=== PATIENT | female | born 1995 ===

== ENCOUNTER 2019-12-22 16:11 | Inpatient (IN) | payer MEDICAID ==
[2019-12-22] MEDS ORDERED: LIDOCAINE (2%) 20 MG/1 ML VIAL 20 ML MDV INFILTRATI ONE (19:10)
[2019-12-22] MEDS ORDERED: fentaNYL 100 MCG/2 ML INJ IV PRN (19:10)
[2019-12-22] MEDS ORDERED: TERBUTALINE 1 MG/1 ML INJ SUB-Q PRN (19:10)
[2019-12-22] MEDS ORDERED: ePHEDrine SULFATE 50 MG/1 ML INJ IV PRN (19:10)
[2019-12-22] MEDS ORDERED: AMPICILLIN/NS 2 GM/100 ML 2 GM/100 ML BAG IV ONE (19:10)
--- NOTE | 2019-12-22 19:14 | History and Physical Report ---
History of Present Illness Date of examination: 12/22/19 Date of admission: 12/22/19 18:39 Chief complaint: 12/22/2019 History of present illness: Patient complains of contractions since last night. Denies LOF or VB. Reports active movement. EDC 01/07/2020 per patient report. Patient states she received care at [facility] but no records are available. labs are also not available so these have been drawn upon admission. Past History Past Medical History: other (Denies health problems) Past Surgical History: no surgical history [facility] History: denies: chlamydia, gonorrhea, hepatitis B, hepatitis C, herpes, HIV, syphilis, trichomonas Family/Genetic History: none Social history: full code. denies: smoking, alcohol abuse, prescription drug abuse, IV drug use - Obstetrical History : 3 Para: 2 Hx # Term Pregnancies: 2 Number of Pregnancies: 0 Spontaneous Abortions: 0 Induced : 0 Number of Living Children: 2 Medications and Allergies Allergies Allergy/AdvReac Type Severity Reaction Status Date / Time No Known Allergies Allergy Unverified 12/22/19 18:29 Home Medications Medication Instructions Recorded Confirmed Last Taken Type One Daily Tablet 1 tab PO DAILY 12/23/19 12/23/19 12/21/19 14:00 History 1 Active Meds: Active Medications Ephedrine Sulfate (Ephedrine Sulfate) 10 mg IV Q2M PRN PRN Reason: Hypotension Fentanyl (Sublimaze) 100 mcg IV Q2H PRN PRN Reason: Pain,Severe (7-10) LABOR PAIN Oxytocin/Sodium Chloride (Pitocin/Ns 20 Unit/1000ml Drip) 20 units in 1,000 mls @ 125 mls/hr IV DIRECT LYNN Lactated Ringer's (Lactated Ringers) 1,000 mls @ 125 mls/hr IV DIRECT LYNN Ampicillin Sodium (Ampicillin/Ns 2 Gm/100 Ml) 2 gm in 100 mls @ 100 mls/hr IV ONCE ONE; Protocol Stop: 12/22/19 20:09 Ampicillin Sodium (Ampicillin/Ns 1 Gm/50 Ml) 1 gm in 50 mls @ 100 mls/hr IV Q4HR LYNN; Protocol Lidocaine (Xylocaine 2%) 20 ml INFILTRATI ONCE ONE Stop: 12/22/19 19:11 Terbutaline Sulfate (Brethine) 0.25 mg SUB-Q ONCE PRN PRN Reason: Hyperstimulation/Hypertonicity Review of Systems All systems: negative (contractions) - Vital Signs Vital signs: Vital Signs Temp Pulse Resp BP 98.2 F 86 16 90/58 12/22/19 18:21 12/22/19 18:21 12/22/19 18:21 12/22/19 18:21 Temp Pulse Resp BP Pulse Ox 98.2 F 86 16 90/58 12/22/19 18:21 12/22/19 18:21 12/22/19 18:21 12/22/19 18:21 - Physical Exam Abdomen: Positive: normal appearance, soft. Negative: distention, tenderness, guarding, rigidity Genitourinary (Female): Positive: normal external genitalia, normal perenium. Negative: perineal/vulvar lesions Vagina: Positive: normal moisture Uterus: Positive: enlarged. Negative: tender Anus/Rectum: Positive: normal perianal skin Extremities: Positive: normal. Negative: tenderness, edema - Obstetrical FHR: category 1 Uterine Contraction Monitor Mode: External Cervical Dilatation: 4 Cervical Effacement Percentage: 95 station: -3 Uterine Contraction Pattern: Regular Uterine Contraction Intensity: Moderate Results Result Diagrams: 12/23/19 14:39 All other labs normal. Assessment and Plan A: at 37 5/7 weeks gestation. Active labor. GBS unknown. No records available. P: Admit. Request records. GBS prophylaxis. EFM. Anticipate .
[2019-12-22 20:09] LABS: Hematocrit 38.2 % (30.3-42.9); Hemoglobin 12.2 gm/dl (10.1-14.3); Mean Corpuscular HGB Conc 32 % (30-34); Mean Corpuscular Volume 72 fl (79-97); Platelet Count 253 K/mm3 (140-440); Red Blood Count 5.32 M/mm3 (3.65-5.03); Red Cell Distribution Width 15.1 % (13.2-15.2)
[2019-12-22] MEDS: LACTATED RINGERS 1,000 ML IV SCH ×3 (20:23→22:56)
[2019-12-22 20:32] LABS: Hepatitis C Virus Antibody Non-Reactive (NonReactive)
[2019-12-22] MEDS ORDERED: DEXMEDETOMIDINE 200 MCG/2 ML VIAL IV ONE (21:46)
[2019-12-22] MEDS ORDERED: NALOXONE 2 MG/2 ML INJ IV PRN (21:49)
[2019-12-22] MEDS ORDERED: fentaNYL-BUPIV 2 MCG/ML-0.125% 200 MCG/100 ML BAG EPIDURAL SCH (22:00)
--- NOTE | 2019-12-22 22:15 | Event Note ---
Date: 12/22/19 [facility] – [place], [place] /-2
--- NOTE | 2019-12-22 22:19 | Anesthesia Consultation ---
Anesthesia Consult and Med Hx Date of service: 12/22/19 - Airway Anesthetic Teeth Evaluation: Good ROM Head & Neck: Adequate Mental/Hyoid Distance: Adequate Mallampati Class: Class II Intubation Access Assessment: Probably Good - Pulmonary Exam CTA: Yes - Cardiac Exam Cardiac Exam: RRR - Pre-Operative Health Status ASA Pre-Surgery Classification: ASA2 Proposed Anesthetic Plan: Epidural - Pulmonary Hx Smoking: No Hx Asthma: No Hx Respiratory Symptoms: No SOB: No COPD: No Home Oxygen Therapy: No Hx Pneumonia: No Hx Sleep Apnea: No - Cardiovascular System Hx Hypertension: No Hx Coronary Artery Disease: No Hx Heart Attack/AMI: No Hx Angina: No Hx Percutaneous Transluminal Coronary Angioplasty (PTCA): No Hx Cardia Arrhythmia: No Hx Pacemaker: No Hx Internal Defibrillator: No Hx Valvular Heart Disease: No Hx Heart Murmur: No Hx Peripheral Vascular Disease: No - Central Nervous System Hx Neuromuscular Disorder: No Hx Seizures: No CVA: No Hx Back Pain: No Hx Psychiatric Problems: No - Gastrointestinal Hx Ulcer: No Hx Gastroesophageal Reflux Disease: Yes - Endocrine Hx Renal Disease: No Hx End Stage Renal Disease: No Hx Cirrhosis: No Hx Liver Disease: No Hx Insulin Dependent Diabetes: No Hx Non-Insulin Dependent Diabetes: No Hx Thyroid Disease: No Hx Hypothyroidism: No Hx Hyperthyroidism: No - Hematic Hx Anemia: No Hx Sickle Cell Disease: No - Other Systems Hx Alcohol Use: No Hx Substance Use: No Hx Cancer: No Hx Obesity: Yes
[2019-12-22] MEDS: ePHEDrine SULFATE 50 MG/1 ML INJ IV PRN ×3 (22:22→22:30)
[2019-12-22] MEDS ORDERED: AMPICILLIN/NS 1 GM/50 ML 1 GM/50 ML BAG IV SCH (23:13)
[2019-12-23] MEDS: OXYTOCIN 20 UNIT/1000ML DRIP 20 UNITS/1,000 ML BAG IV SCH ×2 (01:59→03:02)
[2019-12-23] MEDS ORDERED: diphenhydrAMINE 25 MG CAP PO PRN (02:11)
[2019-12-23] MEDS ORDERED: WITCH HAZEL/ GLYCERIN PAD TP PRN (02:11)
[2019-12-23] MEDS ORDERED: LANOLIN/ZINC/DIMETHICONE (LANSINOH) 7 GM TP PRN (02:11)
[2019-12-23] MEDS ORDERED: HYDROcodone/ACETAMINOPHEN 5-325 MG TAB PO PRN (02:11)
[2019-12-23] MEDS ORDERED: ONDANSETRON 4 MG/2 ML INJ IV PRN (02:11)
[2019-12-23] MEDS ORDERED: MAGNESIUM HYDROXIDE (MOM) ORAL LIQD UDC PO PRN (02:11)
--- NOTE | 2019-12-23 02:28 | Procedure Note ---
OB Delivery Note - Delivery Date of Delivery: 12/23/19 Surgeon: ELIANE CASAS Estimated blood loss: 300cc - Vaginal Delivery presentation: vertex Delivery position: OA Intrapartum events: none Delivery induction: none Delivery augmentation: rupture of membranes Delivery monitor: external FHT, external uterine Route of delivery: Delivery placenta: spontaneous Delivery cord: nuchal cord, 3 umbilical vessels Episiotomy: none Delivery laceration: none Anesthesia: epidural Delivery comments: Spontaneous vaginal delivery at 01:37 of liveborn female weighing 7 lb. 8 oz. over intact perineum with apgars of 8/9. Epidural anesthesia. Baby placed skin to skin with mom immediately after delivery. Spontaneous cry and resp irations. Baby bulb suctioned and dried with warm towels. 3 vessel cord double clamped and cut. Cord blood obtained. Spontaneous delivery of intact placenta and membranes by sheehan mechanism. EBL 300 cc. Pitocin to IV fluids after delivery of placenta. Fundus firm and midline. No lacerations noted. Vaginal sweep negative. Mother and baby stable.
[2019-12-23] MEDS: DOCUSATE SODIUM 100 MG CAP PO SCH (10:39)
[2019-12-23] MEDS: IBUPROFEN 600 MG TAB PO SCH ×2 (11:15→16:31)
--- NOTE | 2019-12-23 12:54 | Post Anesthesia Evaluation ---
- Post Anesthesia Evaluation Patient Participated: Yes Airway Patent: Yes Stable Respiratory Function: Yes Nausea/Vomiting: No Temp > 96.8F: Yes Pain Manageable: Yes Adequeate Hydration: Yes Anesthesia Complications: No Block Receding Appropriately: Yes Patient on Ventilator: No
[2019-12-23 15:29] LABS: Hematocrit 33.6 % (30.3-42.9); Hemoglobin 10.6 gm/dl (10.1-14.3)
[2019-12-24] MEDS: IBUPROFEN 600 MG TAB PO SCH ×3 (00:31→09:34)
[2019-12-24] MEDS: DOCUSATE SODIUM 100 MG CAP PO SCH ×2 (00:31→09:33)
[2019-12-24] MEDS ORDERED: DIPHtheria,PERTUSSIS(ACELL),TETANUS VACCINE/PF 0.5 ML VIAL IM ONE (06:00)
--- NOTE | 2019-12-24 14:09 | Progress Note ---
Assessment and Plan - Patient Problems (1) Status post normal vaginal delivery Current Visit: Yes Status: Acute Plan to address problem: PPD 1 - stable Continue routine orders Discharge to home today Follow-up at [facility] as needed or in 6 weeks exam (2) Single live Current Visit: Yes Status: Acute Subjective - Subjective Date of service: 12/24/19 Principal diagnosis: PPD #1; s/p Interval history: see [facility] - H&P, Event Note and OB Delivery Procedure Note Patient reports: appetite normal, voiding normally, pain well controlled, ambulating normally, no dizzy ambulation Sawyer: doing well Objective - Vital Signs Latest vital signs: Vital Signs Temp Pulse Resp BP BP Pulse Ox 12/24/19 07:58 97.4 F L 78 14 106/72 93 12/24/19 06:53 18 12/24/19 05:53 18 12/24/19 01:31 18 12/24/19 00:31 18 12/24/19 00:03 98.0 F 68 20 114/47 97 12/23/19 17:16 97.3 F L 75 18 110/50 94 Intake and Output 12/23/19 12/24/19 12/24/19 23:59 07:59 15:59 Intake Total 240 360 800 Balance 240 360 800 Intake: Oral 800 Intake, Free Water 240 360 Other: Total, Intake Amount 400 Voiding Method Toilet # Voids 1 Void 1 1 1 - Exam Cardiovascular: Present: Regular rate Lungs: Present: Clear to auscultation Abdomen: Present: normal appearance, soft Vulva: both: normal Uterus: Present: normal, firm, fundal height at umbilicus Extremities: Present: normal Comments: small lochia
--- NOTE | 2019-12-24 14:10 | Discharge Summary ---
Providers - Providers Date of Admission: 12/22/19 18:39 Date of discharge: 12/24/19 Attending physician: SHIRA NEELY Primary care physician: [facility] Hospitalization Reason for admission: active labor, IUP at term Delivery: Episiotomy: none Laceration: none Other procedures: none complications: none Discharge diagnosis: IUP at term delivered Pony baby: female Hospital course: Uncomplicated Condition at discharge: Stable Disposition: CO-01 TO HOME OR SELFCARE - Discharge Diagnoses (1) Status post normal vaginal delivery Status: Acute (2) Single live Status: Acute Plan - Provider Discharge Summary Activity: routine, no sex for 6 weeks, no heavy lifting 4 weeks, no strenuous exercise Diet: routine Instructions: routine Additional instructions: [] Smoking cessation referral if applicable(refer to patient education folder for contact #) [] Refer to [facility] Booklet Call your doctor immediately for: * Fever > 100.5 * Heavy vaginal bleeding ( >1 pad per hour) * Severe persistent headache * Shortness of breath * Reddened, hot, painful area to leg or breast * Drainage or odor from incision. * Keep incision clean and dry at all times and follow doctor's instructions regarding bathing/showering - Follow up plan Follow up: PRIMARY CARE, [Primary Care Provider] - 6 Weeks (Follow-up at [facility] as needed or in 6 weeks exam)
[2019-12-24 16:21] VITALS: BP 114/55
== END 2019-12-24 15:15 | disposition home or self-care (01) | DRG 775 ==
LOC: TRG 16:11 → APU 18:22 → TRG 18:39 → LD 18:39 → OB 12-23 03:35
PROVIDERS: ADMIT Obstetrics & Gynecology; ATTEND Obstetrics & Gynecology
PROC: 10E0XZZ Delivery of Products of Conception, External Approach (ICD-10-PCS; principal; 2019-12-23)
PROC: 3E0R3BZ Introduction of Anesthetic Agent into Spinal Canal, Percutaneous Approach (ICD-10-PCS; 2019-12-23)
PROC: 00HU33Z Insertion of Infusion Device into Spinal Canal, Percutaneous Approach (ICD-10-PCS; 2019-12-23)
PROC: 3E0234Z Introduction of Serum, Toxoid and Vaccine into Muscle, Percutaneous Approach (ICD-10-PCS; 2019-12-24)
DX: O69.81X0 Labor and delivery complicated by cord around neck, without compression, not applicable or unspecified (principal); O99.62 Diseases of the digestive system complicating childbirth; K21.9 Gastro-esophageal reflux disease without esophagitis; O99.214 Obesity complicating childbirth; E66.9 Obesity, unspecified; Z3A.37 37 weeks gestation of pregnancy; Z37.0 Single live birth
CPT/HCPCS: 36415; 83036; 85014; 85018; 85027; 86592; 86706; 86762; 86803; 86850; 86900; 86901; 87806; 90471; 90715; G0378; A6250; J0290; J2590; J3490; J7120

== ENCOUNTER 2020-04-04 08:05 | Day surgery (SDC) | payer MEDICAID ==
--- NOTE | 2020-04-01 12:59 | History and Physical Report ---
History of Present Illness Date of examination: 04/04/20 History of present illness: 24 yo desires sterilization and is for Lap BTL on 04/04. BTL papers signed october 10. Past History Past Medical History: no pertinent history Past Surgical History: no surgical history Social history: no significant social history - Obstetrical History : 3 Number of Living Children: 3 Medications and Allergies Allergies Allergy/AdvReac Type Severity Reaction Status Date / Time No Known Allergies Allergy Unverified 03/27/20 15:19 Home Medications Medication Instructions Recorded Confirmed Last Taken Type One Daily Tablet 1 tab PO DAILY 12/23/19 03/27/20 12/21/19 14:00 History 1 [id number] Tablet 1 tab PO DAILY 03/27/20 03/27/20 Unknown History Review of Systems All systems: negative (except HPI) - Physical Exam Cardiovascular: Regular rate, No murmurs Lungs: Positive: Clear to auscultation Abdomen: Positive: normal appearance, soft. Negative: tenderness Results All other labs normal. Assessment and Plan - Patient Problems (1) Sterilization Current Visit: No Status: Acute Plan to address problem: PT consented and counseled for Lap BTL. Patient fully consented for the surgery. Risks, benefits, and alternatives were all discussed with the patient including risk of bleeding, infection, and potential for injury. Patient understands and accepts these risks. Patient agrees to proceed with surgery. All questions were answered. H&P is up-to-date.
[2020-04-04] MEDS ORDERED: LACTATED RINGERS 1,000 ML ONE ×2 (09:54→12:10)
--- NOTE | 2020-04-04 09:58 | Anesthesia Day of Surgery ---
Anesthesia Day of Surgery - Day of Surgery Patient Examined: Yes Patient H&P Reviewed: Yes Patient is NPO: Yes
--- NOTE | 2020-04-04 09:58 | Anesthesia Consultation ---
Anesthesia Consult and Med Hx Date of service: 04/04/20 - Airway Anesthetic Teeth Evaluation: Good ROM Head & Neck: Adequate Mental/Hyoid Distance: Adequate Mallampati Class: Class II Intubation Access Assessment: Good - Pre-Operative Health Status ASA Pre-Surgery Classification: ASA1 Proposed Anesthetic Plan: General - Pulmonary Hx Smoking: No Hx Asthma: No Hx Respiratory Symptoms: No SOB: No COPD: No Hx Pneumonia: No Hx Sleep Apnea: No - Cardiovascular System Hx Hypertension: No Hx Coronary Artery Disease: No Hx Heart Attack/AMI: No Hx Angina: No Hx Percutaneous Transluminal Coronary Angioplasty (PTCA): No Hx Cardia Arrhythmia: No Hx Pacemaker: No Hx Internal Defibrillator: No Hx Valvular Heart Disease: No Hx Heart Murmur: No Hx Peripheral Vascular Disease: No - Central Nervous System Hx Neuromuscular Disorder: No Hx Seizures: No CVA: No Hx Back Pain: No Hx Psychiatric Problems: No - Gastrointestinal Hx Ulcer: No Hx Gastroesophageal Reflux Disease: Yes - Endocrine Hx Renal Disease: No Hx End Stage Renal Disease: No Hx Cirrhosis: No Hx Liver Disease: No Hx Insulin Dependent Diabetes: No Hx Non-Insulin Dependent Diabetes: No Hx Thyroid Disease: No Hx Hypothyroidism: No Hx Hyperthyroidism: No - Hematic Hx Anemia: No Hx Sickle Cell Disease: No - Other Systems Hx Alcohol Use: No Hx Substance Use: No Hx Cancer: No Hx Obesity: Yes
[2020-04-04] MEDS ORDERED: MIDAZOLAM 2 MG/2 ML INJ IV NR (10:00)
[2020-04-04] MEDS ORDERED: ONDANSETRON 4 MG/2 ML INJ IV PRN (10:00)
[2020-04-04] MEDS ORDERED: CELECOXIB 200 MG CAP PO NR (10:00)
[2020-04-04] MEDS ORDERED: ACETAMINOPHEN 500 MG TAB PO NR (10:00)
[2020-04-04] MEDS ORDERED: LACTATED RINGERS 1,000 ML IV SCH (10:00)
[2020-04-04] MEDS ORDERED: HYDROmorphone 1 MG/1 ML INJ IV PRN ×2 (10:30)
[2020-04-04] MEDS ORDERED: MAGNESIUM OXIDE 400 MG TAB PO NR (10:30)
[2020-04-04] MEDS ORDERED: BUPIVACAINE/PF (0.5%) 5 MG/1 ML 30 ML VIAL INFILTRATI ONE ×2 (10:54→11:49)
[2020-04-04] MEDS ORDERED: ROCURONIUM 50 MG/5 ML INJ IV ONE (11:00)
[2020-04-04] MEDS ORDERED: LIDOCAINE MPF (2%) 20 MG/1 ML VIAL 5 ML ONE (11:00)
[2020-04-04] MEDS ORDERED: propofoL 200 MG/20 ML VIAL IV ONE (11:00)
[2020-04-04] MEDS ORDERED: ONDANSETRON 4 MG/2 ML INJ ONE (11:00)
[2020-04-04] MEDS ORDERED: dexAMETHasone 20 MG/5 ML VIAL ONE (11:00)
[2020-04-04] MEDS ORDERED: fentaNYL 100 MCG/2 ML INJ ONE ×2 (11:01→12:08)
[2020-04-04] MEDS ORDERED: SODIUM CHLORIDE 0.9% IRR 1,500 ML BOTTLE IR ONE (11:50)
[2020-04-04] MEDS ORDERED: GLYCOPYRROLATE 0.4 MG/2 ML INJ ONE (11:57)
[2020-04-04] MEDS ORDERED: NEOSTIGMINE 10MG/10 ML INJ MDV ONE (11:57)
--- NOTE | 2020-04-04 12:01 | Post Operative Note ---
Date of procedure: 04/04/20 Pre-op diagnosis: Sterilization Post-op diagnosis: same Findings: Normal uterus tubes and ovaries. General abdominal and pelvic survey within normal limits. Procedure: Indication: 24-year-old G3, P3 desires sterilization is here for her lap tubal ligation with Filshie clips. Procedure: Laparoscopic bilateral tubal ligation. Patient taken the operating room and prepped and draped in usual fashion. Attention was first turned vaginally where single-tooth tenaculum was applied to the anterior lip of the cervix and an acorn uterine manipulator was placed. Attention was now turned abdominally where a 5 mm incision was made in the umbilicus. Veres needle then placed in the abdominal cavity. The abdomen was appropriately insufflated with CO2 gas. Veres needle removed and the 5 mm trocar was placed in abdominal cavity. Placement confirmed with the camera. Attention was turned suprapubically where an 8 mm incision was made and the 8 mm trocar was placed suprapubically in the midline under direct visualization. Tr ocar placed successfully and without difficulty. Attention was first turned to assess in the abdomen and pelvis. Findings noted above. Attention turned to the tubal ligation where a Filshie clip was applied to each tube. Each clip encompassed the full width of the tube on each side and good hemostasis was noted afterwards on both sides. At this point the abdomen was fully desufflated. Trochars were removed. Trocar sites were closed with 4-0 Vicryl in a subcuticular fashion followed by Marcaine. The acorn uterine manipulator and single-tooth tenaculum were removed. Procedure concluded at this point. Patient tolerated the procedure well. All instrument lap counts were correct. Patient taken to the recovery room in stable condition. Anesthesia: GETA Surgeon: SHIRA NEELY Estimated blood loss: minimal Pathology: none Condition: stable Disposition: PACU
--- NOTE | 2020-04-04 12:04 | Short Stay Summary ---
Short Stay Documentation Date of service: 04/04/20 Narrative H&P: Patient presented for scheduled tubal ligation. Surgery was uncomplicated. Please see H&P and operative report for details. Follow-up in the office 2 weeks postop. - History H&P: dictated Social history: no significant social history - Allergies and Medications Current Medications: Allergies No Known Allergies Allergy (Unverified 03/27/20 15:19) Home Medications Medication Instructions Recorded Confirmed Last Taken Type One Daily Tablet 1 tab PO DAILY 12/23/19 03/27/20 12/21/19 14:00 History 1 [id number] Tablet 1 tab PO DAILY 03/27/20 03/27/20 Unknown History Ibuprofen [Motrin 600 MG tab] 600 mg PO Q8H PRN #30 tablet 04/04/20 Unknown Rx oxyCODONE /ACETAMINOPHEN [Percocet 1 tab PO Q4HR PRN #30 tab 04/04/20 Unknown Rx 5/325] Active Medications Celecoxib (Celebrex) 200 mg PO PREOP NR Stop: 04/04/20 22:00 Hydromorphone HCl (Dilaudid) 0.25 mg IV Q10MIN PRN PRN Reason: Pain, Moderate (4-6) Stop: 04/04/20 22:00 Hydromorphone HCl (Dilaudid) 0.5 mg IV Q10MIN PRN PRN Reason: Pain , Severe (7-10) Stop: 04/04/20 22:00 Lactated Ringer's (Lactated Ringers) 1,000 mls @ 125 mls/hr IV DIRECT LYNN Magnesium Oxide (Mag-Ox) 400 mg PO ONCE NR Stop: 04/04/20 22:00 Midazolam HCl (Versed) 2 mg IV PREOP NR Stop: 04/04/20 23:59 Ondansetron HCl (Zofran) 4 mg IV ONCE PRN PRN Reason: Nausea And Vomiting Stop: 04/04/20 22:00 - Disposition Condition at discharge: Stable Disposition: DC-01 TO HOME OR SELFCARE - Discharge Diagnoses (1) Sterilization Status: Acute Short Stay Discharge Plan Follow up with: SHIRA NEELY MD [Staff Physician] - 14 Days Prescriptions: Ibuprofen [Motrin 600 MG tab] 600 mg PO Q8H PRN #30 tablet PRN Reason: Pain oxyCODONE /ACETAMINOPHEN [Percocet 5/325] 1 tab PO Q4HR PRN #30 tab PRN Reason: Pain , Severe (7-10)
[2020-04-04 14:08] VITALS: BP 110/64
--- NOTE | 2020-04-04 14:26 | Post Anesthesia Evaluation ---
- Post Anesthesia Evaluation Patient Participated: Yes Airway Patent: Yes Stable Respiratory Function: Yes Nausea/Vomiting: No Temp > 96.8F: Yes Pain Manageable: Yes Adequeate Hydration: Yes Anesthesia Complications: No Block Receding Appropriately: Not Applicable Patient on Ventilator: No
== END 2020-04-04 08:06 | disposition home or self-care (01) ==
LOC: OR 08:05
PROVIDERS: ATTEND Obstetrics & Gynecology
DX: Z30.2 Encounter for sterilization (principal); K21.9 Gastro-esophageal reflux disease without esophagitis; Z79.899 Other long term (current) drug therapy; Z83.3 Family history of diabetes mellitus; Z98.890 Other specified postprocedural states
CPT/HCPCS: 58671; 81025; J1100; J2405; J2704; J2710; J3010; J7120